=== PATIENT | male | born 1955 | race Caucasian/White ===

== ENCOUNTER 2019-01-06 17:51 | Inpatient (IN) | payer OTHER ==
[~2019-01-06] VITALS: Ht 165.1 cm; Wt 46.3 kg
[2019-01-06] MEDS ORDERED: SOD CHLORIDE 0.9% 550 ML IV ONE (18:30)
[2019-01-06] MEDS ORDERED: CEFTRIAXONE 1 GM/50 ML (PMX) 50 ML IVPB ONE (20:00)
--- NOTE | 2019-01-06 20:38 | ERD ---
ER Documentation Chief Complaint Chief Complaint suicidal ideation s/p not being seen @ wound clinic and "in pain" HPI This is a 63-year-old male who presents for evaluation of general malaise, and left foot pain, stating he has a concern of left foot is infected. He also endorses flank pain, on the left side, he denies nausea vomiting, no fever. Of note, patient endorsed suicidal ideations in triage and to her our nurse. I ad dressed this with him, and the patient stated that he is in fact not suicidal, and has no plan to harm himself, he has no psychiatric history, and he does not wish to speak to a psychiatrist. He states that he said this, in order to be evaluated, for his pain, and he wanted to be seen faster. ROS All systems reviewed and are negative except as per history of present illness. Allergies Allergies: Coded Allergies: No Known Allergies (Verified Allergy, Unknown, 01/06/19) PMhx/Soc History of Surgery: Yes (Rt above knee amputation) Anesthesia Reaction: No Hx Neurological Disorder: Yes (neuropathy) Hx Cardiac Disorders: Yes (DM) Hx Psychiatric Problems: No Hx Miscellaneous Medical Probl: Yes (vision changes r/t neuropathy) Hx Alcohol Use: Yes (few beers/day) Hx Substance Use: No Hx Tobacco Use: No Smoking Status: Never smoker Physical Exam Vitals Vital Signs Date Temp Pulse Resp B/P (MAP) Pulse Ox O2 O2 Flow FiO2 Time Delivery Rate 01/06/19 98.1 68 16 100/76 100 18:04 (84) Physical Exam Const: No acute distress Head: Atraumatic Eyes: Normal Conjunctiva ENT: Normal External Ears, Nose and Mouth. Neck: Full range of motion. No meningismus. Resp: Clear to auscultation bilaterally Cardio: Regular rate and rhythm, no murmurs Abd: Soft, non tender, non distended. Normal bowel sounds Skin: No petechiae or rashes Back: No midline or flank tenderness Ext: No cyanosis, or edema. He has a right lower extremity BKA, there is a stage I foot ulcer on the medial foot Neur: Awake and alert Psych: Normal Mood and Affect Result Diagram: 01/06/19 1836 01/06/19 1836 Results 24 hrs Laboratory Tests Test 01/06/19 18:12 2/22/19 18:36 Blood Gas Specimen Source Blood venous Arterial Blood Date Drawn 01/06/2019 7:12:51 PM Arterial Blood Gas Puncture Site VENOUS LINE Hank Test N/A Venous Blood pH 7.464 Venous Blood pCO2 (Temp Corrected) 38.0 mmHG Venous Blood pO2 (Temp Corrected) 68.4 mmHG Venous Blood HCO3 26.7 mmol/L Venous Blood Oxygen Saturation 93.5 mmHG Venous Blood Base Excess 2.9 mmol/L Venous Blood Total Hemoglobin 11.4 g/dl Venous Blood Oxyhemoglobin 93.2 % Venous Blood Methemoglobin 0.2 % Carboxyhemoglobin 0.1 % Blood Gas Temperature 37.0 C Blood Gas Modality ROOM AIR FiO2 21.0 % Blood Gas Notified Whom MG Blood Gas Notified Time 01/06/2019 7:17:20 PM White Blood Count 5.4 10^3/ul Red Blood Count 3.80 10^6/ul Hemoglobin 11.5 g/dl Hematocrit 32.9 % Mean Corpuscular Volume 86.6 fl Mean Corpuscular Hemoglobin 30.3 pg Mean Corpuscular Hemoglobin Concent 35.0 g/dl Red Cell Distribution Width 12.7 % Platelet Count 205 10^3/UL Mean Platelet Volume 9.8 fl Immature Granulocytes % 0.400 % Neutrophils % 62.9 % Lymphocytes % 26.4 % Monocytes % 8.5 % Eosinophils % 0.9 % Basophils % 0.9 % Nucleated Red Blood Cells % 0.0 /100WBC Immature Granulocytes # 0.020 10^3/ul Neutrophils # 3.4 10^3/ul Lymphocytes # 1.4 10^3/ul Monocytes # 0.5 10^3/ul Eosinophils # 0.1 10^3/ul Basophils # 0.1 10^3/ul Nucleated Red Blood Cells # 0.0 10^3/ul Urine Color YELLOW Urine Clarity SLIGHTLY CLOUDY Urine pH 6.0 Urine Specific [place] 1.026 Urine Ketones NEGATIVE mg/dL Urine Nitrite NEGATIVE mg/dL Urine Bilirubin NEGATIVE mg/dL Urine Urobilinogen NEGATIVE mg/dL Urine Leukocyte Esterase 1+ Bhumika/ul Urine Microscopic RBC 9 /HPF Urine Microscopic WBC 73 /HPF Urine Hemoglobin 1+ mg/dL Urine Glucose 3+ mg/dL Urine Total Protein NEGATIVE mg/dl Sodium Level 135 mmol/L Potassium Level 4.0 mmol/L Chloride Level 98 mmol/L Carbon Dioxide Level 29 mmol/L Anion Gap 8 Blood Urea Nitrogen 9 mg/dl Creatinine 0.71 mg/dl Est Glomerular Filtrat Rate mL/min > 60 mL/min Glucose Level 232 mg/dl Calcium Level 9.6 mg/dl Phosphorus Level 2.8 mg/dl Magnesium Level 1.9 mg/dl Total Bilirubin 0.0 mg/dl Direct Bilirubin 0.00 mg/dl Indirect Bilirubin 0.0 mg/dl Aspartate Amino Transf (AST/SGOT) 96 IU/L Alanine Aminotransferase (ALT/SGPT) 62 IU/L Alkaline Phosphatase 222 IU/L Troponin I < 0.012 ng/ml Total Protein 6.9 g/dl Albumin 3.8 g/dl Globulin 3.10 g/dl Albumin/Globulin Ratio 1.22 Current Medications Medications Dose Sig/[place] Start Time Status Last (Trade) Ordered Route PRN Stop Time Admin Dose Reason Admin Sodium 550 ml @ ONCE ONCE 01/06/19 DC 01/06/19 Chloride 1,000 mls/hr IV 18:30 18:51 01/06/19 19:02 Ceftriaxone 50 ml @ ONCE ONCE 01/06/19 DC 01/06/19 Sodium 100 mls/hr IVPB 20:00 20:23 01/06/19 20:29 Procedures/MDM 63-year-old male presents for evaluation of foot pain, generalized malaise and flank pain. On exam patient is nontoxic-appearing, his labs returned unremarkable for pyuria, and given male sex, as well as some noted general malaise, I am concerned about pyelonephritis, in addition he is an uncontrolled diabetic, will plan for admission and will give a dose of ceftriaxone. Regarding the patient stated SI, as noted above, I discussed this in significant detail with the patient, and he clearly stated his reasons for having stated that he had SI, he is very emphatic that he has no suicidal ideations, and has no intention of harming himself, thus I do not feel that he requires psychiatric hold. Patient will be admitted to [facility], he is hemodynamically stable, and is stable for transfer. He has not notable stage I left foot ulcer, with no evidence of infection, I have a low suspicion for osteomyelitis. X-ray Foot 3V Interpreted by me: Bones: No fracture Joints: No dislocation Foreign body: None Departure Diagnosis: Primary Impression: Pyelonephritis Additional Impression: Foot pain Laterality: left Qualified Codes: M79.672 - Pain in left foot Condition: Stable DIAZ,DENNIS MD Jan 06, 2019 20:38
[2019-01-06] MEDS ORDERED: GABA-528 PO (20:40)
[2019-01-06] MEDS ORDERED: LANT3I SC (20:40)
[2019-01-06] MEDS ORDERED: NOVO3I SC (20:40)
[2019-01-06] MEDS ORDERED: CEPH-443 PO (20:52)
[2019-01-07] MEDS ORDERED: KETOROLAC 15 MG INJ IV STA (02:44)
[2019-01-07] MEDS ORDERED: INSULIN LISPRO 100 UNIT/ML VIAL SC ONE (15:30)
[2019-01-07] MEDS ORDERED: SOD CHLORIDE 0.9% 1,000 ML IV ONE (15:30)
[2019-01-07] MEDS ORDERED: ACETAMINOPHEN 325 MG TAB ONE (16:20)
[2019-01-07] MEDS ORDERED: DEXTROSE 50% 50 ML SYRINGE IV PRN ×2 (16:30)
[2019-01-07] MEDS ORDERED: GLUCAGON 1 MG INJ IM PRN (16:30)
[2019-01-07] MEDS ORDERED: GLUCOSE GEL 15 GRAM TUBE PO PRN ×2 (16:30)
[2019-01-07] MEDS ORDERED: GLUCOSE GEL 15 GRAM TUBE BUCCAL PRN (16:30)
[2019-01-07] MEDS ORDERED: morphine 2 MG INJ IV STA (16:38)
[2019-01-07] MEDS ORDERED: NACL 0.9% 3 ML SYG IV SCH (17:00)
--- NOTE | 2019-01-07 17:13 | HP ---
Date/Time of Note Date/Time of Note DATE: 01/07/19 TIME: 16:59 Assessment/Plan VTE Prophylaxis Pharmacological prophylaxis: heparin Assessment/Plan Hospital Course 63 yo male with h/o DMII and PAD s/p R BKA who presents with severe pain in L ankle L ankle pain: - Probably charcot joint but concern for infection/abscess given swelling and tenderness there - MRI to evaluate - Duplex US as well - Further management pending MRI - Hold off on antibiotics for now DMII with hyperglycemia: - patient off of insulin as outpatinet 2/2 homelessness - titrate basal/bolus insulin - continue metformin PAD: - Aspirin and statin Diabetic neuropathy Discharge: patient in homeless, has a SW who is assisting his case Result Diagram: 01/07/19 1358 01/07/19 1358 Results 24hrs Laboratory Tests Test 01/06/19 18:12 01/06/19 18:36 01/07/19 13:58 01/07/19 15:41 Blood Gas Blood venous Specimen Source Arterial Blood 01/06/2019 7:12: Date Drawn 51 PM Arterial Blood VENOUS LINE Gas Puncture Site Hank Test N/A Venous Blood pH 7.464 H Venous Blood 38.0 pCO2 (Temp Corrected) Venous Blood pO2 68.4 H (Temp Corrected) Venous Blood 26.7 HCO3 Venous Blood 93.5 H Oxygen Saturation Venous Blood 2.9 Base Excess Venous Blood 11.4 Total Hemoglobin Venous Blood 93.2 Oxyhemoglobin Venous Blood 0.2 Methemoglobin Carboxyhemoglobi 0.1 n Blood Gas 37.0 Temperature Blood Gas ROOM AIR Modality FiO2 21.0 Blood Gas MG Notified Whom Blood Gas 01/06/2019 7:17: Notified Time 20 PM White Blood 5.4 3.2 #L Count Red Blood Count 3.80 L 3.77 L Hemoglobin 11.5 L 11.4 L Hematocrit 32.9 L 34.0 L Mean Corpuscular 86.6 90.2 Volume Mean Corpuscular 30.3 30.2 Hemoglobin Mean Corpuscular 35.0 33.5 Hemoglobin Angie nt Red Cell 12.7 12.7 Distribution Width Platelet Count 205 184 Mean Platelet 9.8 9.9 Volume Immature 0.400 0.300 Granulocytes % Neutrophils % 62.9 65.7 Lymphocytes % 26.4 23.0 Monocytes % 8.5 7.9 Eosinophils % 0.9 2.2 Basophils % 0.9 0.9 Nucleated Red 0.0 0.0 Blood Cells % Immature 0.020 0.010 Granulocytes # Neutrophils # 3.4 2.1 Lymphocytes # 1.4 0.7 L Monocytes # 0.5 0.3 Eosinophils # 0.1 0.1 Basophils # 0.1 0.0 Nucleated Red 0.0 0.0 Blood Cells # Urine Color YELLOW Urine Clarity SLIGHTLY CLOUDY A Urine pH 6.0 Urine Specific 1.026 [place] Urine Ketones NEGATIVE Urine Nitrite NEGATIVE Urine Bilirubin NEGATIVE Urine NEGATIVE Urobilinogen Urine Leukocyte 1+ H Esterase Urine 9 H Microscopic RBC Urine 73 H Microscopic WBC Urine Hemoglobin 1+ H Urine Glucose 3+ H Urine Total NEGATIVE Protein Sodium Level 135 134 L Potassium Level 4.0 5.1 Chloride Level 98 100 Carbon Dioxide 29 28 Level Anion Gap 8 6 Blood Urea 9 14 Nitrogen Creatinine 0.71 0.56 L Est Glomerular > 60 > 60 Filtrat Rate mL/min Glucose Level 232 H 651 #*H Calcium Level 9.6 9.1 Phosphorus Level 2.8 Magnesium Level 1.9 Total Bilirubin 0.0 L 0.0 L Direct Bilirubin 0.00 0.00 Indirect 0.0 0.0 Bilirubin Aspartate Amino 96 H 129 H Transf (AST/SGOT ) Alanine 62 64 Aminotransferase (ALT/SGPT) Alkaline 222 H 218 H Phosphatase Troponin I < 0.012 Total Protein 6.9 6.1 Albumin 3.8 3.2 L Globulin 3.10 2.90 Albumin/Globulin 1.22 1.10 Ratio Erythrocyte 8 Sedimentation Rate C-Reactive < 0.5 Protein Bedside Glucose 580 *H Test 01/07/19 16:06 POC Venous 1.0 Lactate HPI/ROS Admit Date/Time Admit Date/Time Hx of Present Illness 63 yo male with h/o DMII, PAD s/p BKA who presents with severe pain in ankle Patient is s/p R BKA but still ambulates on L leg. Over past three days L ankle has become incredibly painful. He denies fever/chills but says he feels generally malaise and unwell. No localizing symptoms other than L ankle. Denies any clear trauma it seems. He is begging for morphine given the pain. PMH/Family/Social Past Medical History Medical History: diabetes Medications Current Medications Insulin Glargine (Lantus) 16 units DAILY@2000 SC ; Start 01/07/19 at 20:00 Insulin Aspart (Novolog Insulin Pen) 5 unit WITH MEALS SC ; Start 01/07/19 at 18:00 Insulin Aspart (Novolog Insulin Pen) NOVOLOG *MODERATE* ALGORITHM WITH MEALS BEDTIME SC ; Start 01/07/19 at 18:00 Miscellaneous Information 1 ea NOTE XX ; Start 01/07/19 at 16:30 Glucose (Glutose) 15 gm Q15M PRN PO DECREASED GLUCOSE; Start 01/07/19 at 16:30 Glucose (Glutose) 22.5 gm Q15M PRN PO DECREASED GLUCOSE; Start 01/07/19 at 16:30 Dextrose (D50w Syringe) 25 ml Q15M PRN IV DECREASED GLUCOSE; Start 01/07/19 at 16:30 Dextrose (D50w Syringe) 50 ml Q15M PRN IV DECREASED GLUCOSE; Start 01/07/19 at 16:30 Glucagon (Glucagen) 1 mg Q15M PRN IM DECREASED GLUCOSE; Start 01/07/19 at 16:30 Glucose (Glutose) 15 gm Q15M PRN BUCCAL DECREASED GLUCOSE; Start 01/07/19 at 16:30 Coded Allergies: No Known Allergies (Verified Allergy, Unknown, 01/06/19) Past Surgical History BKA Family History Significant Family History: no pertinent family hx Social History Alcohol Use: none Smoking Status: Never smoker Drug Use: none Exam/Review of Systems Vital Signs Vitals Vital Signs Date Temp Pulse Resp B/P (MAP) Pulse Ox O2 O2 Flow FiO2 Time Delivery Rate 01/07/19 97.6 74 14 126/88 99 Room Air 15:52 (101) Exam Exam Alert oriented AOx3 Clearly in pain RRR Breathing comfortably s/p R BKA L ankle diffusely swollen and erythematous. Tracks up to calf. NEO LOPEZ MD Jan 07, 2019 17:10
[2019-01-07 17:32] VITALS: BP 147/104; PULSE 81; RESP 18
[2019-01-07 17:40] VITALS: Ht 165.1 cm; Wt 46.3 kg
[2019-01-07] MEDS: INSULIN ASPART [NOVOLOG] 3 ML PEN SC SCH ×3 (18:00→21:00)
[2019-01-07] MEDS: HYDROmorphONE 0.5 MG/0.5 ML SYG IV PRN (19:15)
[2019-01-07] MEDS ORDERED: INSULIN GLARGINE [LANTus] (100 UNITS/ML) SYG SC SCH (20:00)
[2019-01-07 20:42] VITALS: BP 153/94; PULSE 69; RESP 20
[2019-01-07 20:43] VITALS: BP 153/94; PULSE 69; RESP 20
[2019-01-07] MEDS: HEPARIN 5,000 UNIT/1 ML VIAL SC SCH (21:19)
[2019-01-07] MEDS: HYDROCODONE/APAP (5/325) TAB PO PRN (23:37)
[2019-01-08 01:46] VITALS: BP 129/85; PULSE 74; RESP 20
[2019-01-08 07:30] VITALS: BP 140/88; PULSE 80; RESP 18
[2019-01-08] MEDS: ASPIRIN 81 MG TAB PO SCH (08:12)
[2019-01-08] MEDS: INSULIN ASPART [NOVOLOG] 3 ML PEN SC SCH ×7 (08:16→21:00)
[2019-01-08] MEDS: HEPARIN 5,000 UNIT/1 ML VIAL SC SCH ×2 (08:16→20:08)
[2019-01-08] MEDS: HYDROCODONE/APAP (5/325) TAB PO PRN ×3 (08:19→22:51)
[2019-01-08] MEDS ORDERED: INFLUENZA VIRUS VACCINE 0.5 ML (DISPENSING) IM* ONE (09:00)
[2019-01-08] MEDS: HYDROmorphONE 0.5 MG/0.5 ML SYG IV PRN ×2 (11:52→20:06)
[2019-01-08 14:00] VITALS: BP 122/81; PULSE 81; RESP 20
--- NOTE | 2019-01-08 14:34 | PN ---
Date/Time of Note Date/Time of Note DATE: 01/08/19 TIME: 14:24 Assessment/Plan VTE Prophylaxis Risk score (from Nsg)>0 risk: 4 SCD applied (from Nsg): Yes Pharmacological prophylaxis: heparin Lines/Catheters IV Catheter Type (from Nrsg): Saline Lock Urinary Cath still in place: No Assessment/Plan Hospital Course 63 yo male with h/o DMII and PAD s/p R BKA who presents with severe pain in L ankle L ankle pain: - MRI shows neuropathic changes of ankle. Dr Trinidad from podiatry has been consulted DMII with hyperglycemia: - patient off of insulin as outpatinet 12/17 homelessness - titrate basal/bolus insulin PAD: - Aspirin and statin Diabetic neuropathy Discharge: patient in homeless, has a SW who is assisting his case. CM to assist Result Diagram: 01/08/19 0546 01/08/19 0546 Results 24hrs Laboratory Tests Test 01/07/19 15:41 01/07/19 16:06 01/07/19 18:43 01/07/19 21:11 Bedside Glucose 580 *H 160 75 POC Venous Lactate 1.0 Test 01/07/19 21:52 01/08/19 05:46 01/08/19 07:00 01/08/19 07:14 Bedside Glucose 113 42 *L 181 White Blood Count 4.0 #L Red Blood Count 3.62 L Hemoglobin 11.2 L Hematocrit 32.9 L Mean Corpuscular 90.9 Volume Mean Corpuscular 30.9 Hemoglobin Mean Corpuscular 34.0 Hemoglobin Concent Red Cell 12.5 Distribution Width Platelet Count 214 Mean Platelet Volume 10.0 Immature 0.200 Granulocytes % Neutrophils % 53.9 Lymphocytes % 36.2 Monocytes % 6.7 Eosinophils % 2.0 Basophils % 1.0 Nucleated Red Blood 0.0 Cells % Immature 0.010 Granulocytes # Neutrophils # 2.2 Lymphocytes # 1.5 Monocytes # 0.3 Eosinophils # 0.1 Basophils # 0.0 Nucleated Red Blood 0.0 Cells # Sodium Level 141 Potassium Level 3.6 Chloride Level 106 Carbon Dioxide Level 29 Anion Gap 6 Blood Urea Nitrogen 17 Creatinine 0.53 L Est Glomerular > 60 Filtrat Rate mL/min Glucose Level 38 #*L Hemoglobin A1c Calcium Level 9.2 Total Bilirubin 0.0 L Direct Bilirubin 0.00 Indirect Bilirubin 0.0 Aspartate Amino 47 #H Transf (AST/SGOT) Alanine 57 Aminotransferase (AL T/SGPT) Alkaline Phosphatase 168 H Total Protein 6.2 Albumin 3.1 L Globulin 3.10 Albumin/Globulin 1.00 Ratio Test 01/08/19 08:14 01/08/19 11:50 Bedside Glucose 232 H 104 Subjective 24 Hr Interval Summary Free Text/Dictation MRI shows ankle inflammation, no abscess or infection Pain improved Hypoglycemia, insulin dose decreased Exam/Review of Systems Exam Vitals Vital Signs Date Temp Pulse Resp B/P (MAP) Pulse Ox O2 O2 Flow FiO2 Time Delivery Rate 01/08/19 97.8 80 18 140/88 99 Room Air 07:30 (105) Intake and Output 01/07/19 01/07/19 01/08/19 1414:59 22:59 06:59 IntakeIntake Total 500 ml OutputOutput Total 1000 ml 700 ml BalanceBalance -1000 ml -700 ml 500 ml Exam Appears comfortable RRR CTAB Soft nt nd s/p R BKA L ankle still a bit swollen, less than previously Results Results 24hrs Laboratory Tests Test 01/07/19 15:41 01/07/19 16:06 01/07/19 18:43 01/07/19 21:11 Bedside Glucose 580 *H 160 75 POC Venous Lactate 1.0 Test 01/07/19 21:52 01/08/19 05:46 01/08/19 07:00 01/08/19 07:14 Bedside Glucose 113 42 *L 181 White Blood Count 4.0 #L Red Blood Count 3.62 L Hemoglobin 11.2 L Hematocrit 32.9 L Mean Corpuscular 90.9 Volume Mean Corpuscular 30.9 Hemoglobin Mean Corpuscular 34.0 Hemoglobin Concent Red Cell 12.5 Distribution Width Platelet Count 214 Mean Platelet Volume 10.0 Immature 0.200 Granulocytes % Neutrophils % 53.9 Lymphocytes % 36.2 Monocytes % 6.7 Eosinophils % 2.0 Basophils % 1.0 Nucleated Red Blood 0.0 Cells % Immature 0.010 Granulocytes # Neutrophils # 2.2 Lymphocytes # 1.5 Monocytes # 0.3 Eosinophils # 0.1 Basophils # 0.0 Nucleated Red Blood 0.0 Cells # Sodium Level 141 Potassium Level 3.6 Chloride Level 106 Carbon Dioxide Level 29 Anion Gap 6 Blood Urea Nitrogen 17 Creatinine 0.53 L Est Glomerular > 60 Filtrat Rate mL/min Glucose Level 38 #*L Hemoglobin A1c Calcium Level 9.2 Total Bilirubin 0.0 L Direct Bilirubin 0.00 Indirect Bilirubin 0.0 Aspartate Amino 47 #H Transf (AST/SGOT) Alanine 57 Aminotransferase (AL T/SGPT) Alkaline Phosphatase 168 H Total Protein 6.2 Albumin 3.1 L Globulin 3.10 Albumin/Globulin 1.00 Ratio Test 01/08/19 08:14 01/08/19 11:50 Bedside Glucose 232 H 104 Medications Medication Current Medications Insulin Aspart (Novolog Insulin Pen) 5 unit WITH MEALS SC Last administered on 01/08/19 11:57; Admin Dose 5 UNIT; Start 01/07/19 at 18:00 Insulin Aspart (Novolog Insulin Pen) NOVOLOG *MODERATE* ALGORITHM WITH MEALS BEDTIME SC Last administered on 01/08/19 08:16; Admin Dose 6 UNIT; Start 01/07/19 at 18:00 Miscellaneous Information 1 ea NOTE XX ; Start 01/07/19 at 16:30 Glucose (Glutose) 15 gm Q15M PRN PO DECREASED GLUCOSE; Start 01/07/19 at 16:30 Glucose (Glutose) 22.5 gm Q15M PRN PO DECREASED GLUCOSE; Start 01/07/19 at 16:30 Dextrose (D50w Syringe) 25 ml Q15M PRN IV DECREASED GLUCOSE; Start 01/07/19 at 16:30 Dextrose (D50w Syringe) 50 ml Q15M PRN IV DECREASED GLUCOSE Last administered on 01/08/19at 07:05; Admin Dose 50 ML; Start 01/07/19 at 16:30 Glucagon (Glucagen) 1 mg Q15M PRN IM DECREASED GLUCOSE; Start 01/07/19 at 16:30 Glucose (Glutose) 15 gm Q15M PRN BUCCAL DECREASED GLUCOSE; Start 01/07/19 at 16:30 IV Flush (NS 3 ml) 3 ml PER PROTOCOL IV ; Start 01/07/19 at 17:00 Acetaminophen/ Hydrocodone Bitart ([place] (5/325)) 2 tab Q6H PRN PO .SEVERE PAIN 7-10 Last administered on 01/08/19at 08:19; Admin Dose 2 TAB; Start 01/07/19 at 17:00 Hydromorphone HCl (Dilaudid) 0.5 mg Q4H PRN IV .SEVERE PAIN 7-10 Last administered on 01/08/19at 11:52; Admin Dose 0.5 MG; Start 01/07/19 at 17:00 Heparin Sodium (Porcine) (Heparin (5000 Units/1ml)) 5,000 unit Q12 SC Last administered on 01/08/19at 08:16; Admin Dose 5,000 UNIT; Start 01/07/19 at 21:00 Aspirin (Aspirin) 81 mg DAILY PO Last administered on 01/08/19at 08:12; Admin Dose 81 MG; Start 01/08/19 at 09:00 Insulin Glargine (Lantus) 5 units DAILY@2000 SC ; Start 01/08/19 at 20:00 NEO LOPEZ MD Jan 08, 2019 14:34
[2019-01-08 20:00] VITALS: BP 110/70; PULSE 78; RESP 19
[2019-01-08] MEDS ORDERED: INSULIN GLARGINE [LANTus] (100 UNITS/ML) SYG SC SCH (20:00)
--- NOTE | 2019-01-08 20:46 | CONS ---
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 Purulence and biofilm was removed. Less than 20cm2 of area was debrided. Wound cultures were obtained. Recommend daily dakins irrigation with betadine 4x4 gauze and kerlix wrap. Recommend offload heels with pillows. Non-invasive arterial studies ordered. Reviewed X-rays and MRI which showed predominantly diffuse edema and degenerative changes. It's possible that there is early stage of acute charcot neuroarthropathy and recommend non weight bearing to the left lower extremity. Nursing recommendations for daily dressings changes. Recommend vascular evaluation, there is significant calcified vessels and pain could possibly be related to ischemic causes. Consultation Date/Type/Reason Admit Date/Time Date/Time of Note DATE: 01/08/19 TIME: 20:46 Hx of Present Illness 63 yo male with h/o DMII, PAD s/p AKA who presents with severe pain in ankle Patient is s/p R AKA but still ambulates on L leg. Over past three days L ankle has become incredibly painful. He denies fever/chills but says he feels generally malaise and unwell. No localizing symptoms other than L ankle. Denies any clear trauma it seems. He is begging for morphine given the pain. ROS Negative except HPI Past Medical History Medical History: diabetes Home Meds Active Scripts Cephalexin* (Keflex*) 500 Mg Capsule, 500 MG PO QID for 7 Days, CAP Prov:DENNIS DIAZ MD 01/06/19 Reported Medications Gabapentin* (Gabapentin*) 800 Mg Tablet, 800 MG PO TID, #90 TAB 01/06/19 Insulin Glargine* (Lantus*) 100 Unit/Ml Soln, 5 UNIT SC QHS, #1 VIAL 01/06/19 Insulin Aspart* (Novolog Insulin Pen*) 100 Unit/Ml Soln, 5 UNIT SC WITH MEALS, EA 01/06/19 Medications Current Medications Insulin Aspart (Novolog Insulin Pen) 5 unit WITH MEALS SC Last administered on 01/08/19at 17:08; Admin Dose 5 UNIT; Start 01/07/19 at 18:00 Insulin Aspart (Novolog Insulin Pen) NOVOLOG *MODERATE* ALGORITHM WITH MEALS BEDTIME SC Last administered on 01/08/19at 08:16; Admin Dose 6 UNIT; Start 01/07/19 at 18:00 Miscellaneous Information 1 ea NOTE XX ; Start 01/07/19 at 16:30 Glucose (Glutose) 15 gm Q15M PRN PO DECREASED GLUCOSE; Start 01/07/19 at 16:30 Glucose (Glutose) 22.5 gm Q15M PRN PO DECREASED GLUCOSE; Start 01/07/19 at 16:30 Dextrose (D50w Syringe) 25 ml Q15M PRN IV DECREASED GLUCOSE; Start 01/07/19 at 16:30 Dextrose (D50w Syringe) 50 ml Q15M PRN IV DECREASED GLUCOSE Last administered on 01/08/19at 07:05; Admin Dose 50 ML; Start 01/07/19 at 16:30 Glucagon (Glucagen) 1 mg Q15M PRN IM DECREASED GLUCOSE; Start 01/07/19 at 16:30 Glucose (Glutose) 15 gm Q15M PRN BUCCAL DECREASED GLUCOSE; Start 01/07/19 at 16:30 IV Flush (NS 3 ml) 3 ml PER PROTOCOL IV ; Start 01/07/19 at 17:00 Acetaminophen/ Hydrocodone Bitart (Angela (5/325)) 2 tab Q6H PRN PO .SEVERE PAIN 7-10 Last administered on 01/08/19at 16:17; Admin Dose 2 TAB; Start 01/07/19 at 17:00 Hydromorphone HCl (Dilaudid) 0.5 mg Q4H PRN IV .SEVERE PAIN 7-10 Last administered on 01/08/19at 20:06; Admin Dose 0.5 MG; Start 01/07/19 at 17:00 Heparin Sodium (Porcine) (Heparin (5000 Units/1ml)) 5,000 unit Q12 SC Last administered on 01/08/19at 20:08; Admin Dose 5,000 UNIT; Start 01/07/19 at 21:00 Aspirin (Aspirin) 81 mg DAILY PO Last administered on 01/08/19at 08:12; Admin Dose 81 MG; Start 01/08/19 at 09:00 Insulin Glargine (Lantus) 5 units DAILY@2000 SC Last administered on 01/08/19at 20:08; Admin Dose 5 UNITS; Start 01/08/19 at 20:00 Allergies: Coded Allergies: No Known Allergies (Verified Allergy, Unknown, 01/06/19) Past Surgical History Right AKA Social History Alcohol Use: none Smoking Status: Never smoker Drug Use: none Exam/Review of Systems Exam Vitals Vital Signs Date Temp Pulse Resp B/P (MAP) Pulse Ox O2 O2 Flow FiO2 Time Delivery Rate 01/08/19 98.2 78 19 110/70 93 Room Air 20:00 (83) Intake and Output 01/07/19 01/07/19 01/08/19 1414:59 22:59 06:59 IntakeIntake Total 500 ml OutputOutput Total 1000 ml 700 ml BalanceBalance -1000 ml -700 ml 500 ml Exam Weakly palpable DP/PT pulses Weakly palpable popliteal pulse Left medial foot ulceration site with scant purulence appreciated measuring 0.5 x 0.5 x 0.3cm. No tunneling or undermining appreciated. Unable to probe to bone. No proximal streaking Absent protective sensations R above knee amputation site appreciated. Diffuse pain noted to the left foot and ankle region. Left foot X-ray IMPRESSION: No fracture or acute osseous abnormality demonstrated. Left ankle MRI IMPRESSION: 1. Diffuse subcutaneous edema most prominent in the dorsum of the hind foot and midfoot. 2. Diffuse edema of the visualized musculature of the foot may be neuropathic. 3. No acute fracture. Hypertrophic change in the medial malleolus with focal edema likely reactive. 4. Prominent Stieda process/os trigonum with edema / cystic change and degenerative change in the posterior tibiotalar joint may be related to posterior impingement. 5. Small to moderate tibiotalar and subtalar joint effusion. 6. Tenosynovitis of the peroneal and posterior flexor tendons as above. 7. Additional degenerative changes as above. Results Result Diagram: 01/08/19 0546 01/[birth year]/1946 Results 24hrs Laboratory Tests Test 01/07/19 21:11 01/07/19 21:52 01/08/19 05:46 01/08/19 07:00 Bedside Glucose 75 113 42 *L White Blood Count 4.0 #L Red Blood Count 3.62 L Hemoglobin 11.2 L Hematocrit 32.9 L Mean Corpuscular 90.9 Volume Mean Corpuscular 30.9 Hemoglobin Mean Corpuscular 34.0 Hemoglobin Concent Red Cell 12.5 Distribution Width Platelet Count 214 Mean Platelet Volume 10.0 Immature 0.200 Granulocytes % Neutrophils % 53.9 Lymphocytes % 36.2 Monocytes % 6.7 Eosinophils % 2.0 Basophils % 1.0 Nucleated Red Blood 0.0 Cells % Immature 0.010 Granulocytes # Neutrophils # 2.2 Lymphocytes # 1.5 Monocytes # 0.3 Eosinophils # 0.1 Basophils # 0.0 Nucleated Red Blood 0.0 Cells # Sodium Level 141 Potassium Level 3.6 Chloride Level 106 Carbon Dioxide Level 29 Anion Gap 6 Blood Urea Nitrogen 17 Creatinine 0.53 L Est Glomerular > 60 Filtrat Rate mL/min Glucose Level 38 #*L Hemoglobin A1c Calcium Level 9.2 Total Bilirubin 0.0 L Direct Bilirubin 0.00 Indirect Bilirubin 0.0 Aspartate Amino 47 #H Transf (AST/SGOT) Alanine 57 Aminotransferase (AL T/SGPT) Alkaline Phosphatase 168 H Total Protein 6.2 Albumin 3.1 L Globulin 3.10 Albumin/Globulin 1.00 Ratio Test 01/08/19 07:14 01/08/19 08:14 01/08/19 11:50 01/08/19 17:07 Bedside Glucose 181 232 H 104 91 Test 01/08/19 20:01 Bedside Glucose 92 Medications Medication Current Medications Insulin Aspart (Novolog Insulin Pen) 5 unit WITH MEALS SC Last administered on 01/08/19at 17:08; Admin Dose 5 UNIT; Start 01/07/19 at 18:00 Insulin Aspart (Novolog Insulin Pen) NOVOLOG *MODERATE* ALGORITHM WITH MEALS BEDTIME SC Last administered on 01/08/19at 08:16; Admin Dose 6 UNIT; Start 01/07/19 at 18:00 Miscellaneous Information 1 ea NOTE XX ; Start 01/07/19 at 16:30 Glucose (Glutose) 15 gm Q15M PRN PO DECREASED GLUCOSE; Start 01/07/19 at 16:30 Glucose (Glutose) 22.5 gm Q15M PRN PO DECREASED GLUCOSE; Start 01/07/19 at 16:30 Dextrose (D50w Syringe) 25 ml Q15M PRN IV DECREASED GLUCOSE; Start 01/07/19 at 16:30 Dextrose (D50w Syringe) 50 ml Q15M PRN IV DECREASED GLUCOSE Last administered on 01/08/19at 07:05; Admin Dose 50 ML; Start 01/07/19 at 16:30 Glucagon (Glucagen) 1 mg Q15M PRN IM DECREASED GLUCOSE; Start 01/07/19 at 16:30 Glucose (Glutose) 15 gm Q15M PRN BUCCAL DECREASED GLUCOSE; Start 01/07/19 at 16 :30 IV Flush (NS 3 ml) 3 ml PER PROTOCOL IV ; Start 01/07/19 at 17:00 Acetaminophen/ Hydrocodone Bitart (Angela (5/325)) 2 tab Q6H PRN PO .SEVERE PAIN 7-10 Last administered on 01/08/19 16:17; Admin Dose 2 TAB; Start 01/07/19 at 17:00 Hydromorphone HCl (Dilaudid) 0.5 mg Q4H PRN IV .SEVERE PAIN 7-10 Last administered on 01/08/19 20:06; Admin Dose 0.5 MG; Start 01/07/19 at 17:00 Heparin Sodium (Porcine) (Heparin (5000 Units/1ml)) 5,000 unit Q12 SC Last administered on 01/08/19 20:08; Admin Dose 5,000 UNIT; Start 01/07/19 at 21:00 Aspirin (Aspirin) 81 mg DAILY PO Last administered on 01/08/19 08:12; Admin Dose 81 MG; Start 01/08/19 at 09:00 Insulin Glargine (Lantus) 5 units DAILY@2000 SC Last administered on 01/08/19 20:08; Admin Dose 5 UNITS; Start 01/08/19 at 20:00 MANISHA STOCKTON DPM Jan 08, 2019 20:46
[2019-01-08 22:40] VITALS: BP 128/90; PULSE 90
[2019-01-08] MEDS ORDERED: morphine 2 MG INJ IV STA (23:05)
[2019-01-09 02:00] VITALS: BP 116/78; PULSE 89; RESP 19
[2019-01-09 07:19] VITALS: BP 121/79; PULSE 86; RESP 18
[2019-01-09] MEDS: INSULIN ASPART [NOVOLOG] 3 ML PEN SC SCH ×7 (08:00→20:51)
[2019-01-09] MEDS: ASPIRIN 81 MG TAB PO SCH (08:24)
[2019-01-09] MEDS: SODIUM HYPOCHLORITE (1/40) 1 APPLIC BTL IRR SCH (08:26)
[2019-01-09] MEDS: HEPARIN 5,000 UNIT/1 ML VIAL SC SCH ×2 (08:26→20:57)
[2019-01-09] MEDS: HYDROCODONE/APAP (5/325) TAB PO PRN ×2 (13:59→18:44)
[2019-01-09 14:07] VITALS: BP 113/87; PULSE 89; RESP 16
--- NOTE | 2019-01-09 16:35 | PN ---
Date/Time of Note Date/Time of Note DATE: 01/09/19 TIME: 16:33 Assessment/Plan VTE Prophylaxis Risk score (from Nsg)>0 risk: 4 Pharmacological prophylaxis: other Lines/Catheters IV Catheter Type (from Nrsg): Saline Lock Urinary Cath still in place: No Assessment/Plan Hospital Course 63 yo male with h/o DMII and PAD s/p R BKA who presents with severe pain in L ankle L ankle pain: - MRI shows neuropathic changes of ankle. Dr Trinidad from podiatry consultation appreciated, patient is status post debridement DMII with hyperglycemia: - patient off of insulin as outpatient 12/17 homelessness - titrate basal/bolus insulin PAD: - Aspirin and statin Diabetic neuropathy Discharge: patient in homeless, has a SW who is assisting his case. CM to assist Result Diagram: 01/08/1946 01/08/19 0546 Results 24hrs Laboratory Tests Test 01/08/19 17:07 01/08/19 20:01 01/08/19 21:10 01/09/19 08:24 Bedside Glucose 91 92 88 74 Test 01/09/19 12:07 Bedside Glucose 94 Subjective 24 Hr Interval Summary Constitutional: no complaints Exam/Review of Systems Exam Vitals Vital Signs Date Temp Pulse Resp B/P (MAP) Pulse Ox O2 O2 Flow FiO2 Time Delivery Rate 01/09/19 97.9 89 16 113/87 96 Room Air 14:07 (96) Intake and Output 01/08/19 01/08/19 01/09/19 1515:00 23:00 07:00 IntakeIntake Total 1200 ml 800 ml OutputOutput Total 420 ml BalanceBalance 780 ml 800 ml Constitutional: alert, oriented Respiratory: clear to auscultation Cardiovascular: regular rate and rhythm Gastrointestinal: soft; No distended Musculoskeletal: No nl extremities to inspection Results Results 24hrs Laboratory Tests Test 01/08/19 17:07 01/08/19 20:01 01/08/19 21:10 01/09/19 08:24 Bedside Glucose 91 92 88 74 Test 01/09/19 12:07 Bedside Glucose 94 Medications Medication Current Medications Insulin Aspart (Novolog Insulin Pen) 5 unit WITH MEALS SC Last administered on 01/09/19at 12:08; Admin Dose 5 UNIT; Start 01/07/19 at 18:00 Insulin Aspart (Novolog Insulin Pen) NOVOLOG *MODERATE* ALGORITHM WITH MEALS BEDTIME SC Last administered on 01/08/19 08:16; Admin Dose 6 UNIT; Start 01/07/19 at 18:00 Miscellaneous Information 1 ea NOTE XX ; Start 01/07/19 at 16:30 Glucose (Glutose) 15 gm Q15M PRN PO DECREASED GLUCOSE; Start 01/07/19 at 16:30 Glucose (Glutose) 22.5 gm Q15M PRN PO DECREASED GLUCOSE; Start 01/07/19 at 16:30 Dextrose (D50w Syringe) 25 ml Q15M PRN IV DECREASED GLUCOSE; Start 01/07/19 at 16:30 Dextrose (D50w Syringe) 50 ml Q15M PRN IV DECREASED GLUCOSE Last administered on 01/08/19at 07:05; Admin Dose 50 ML; Start 01/07/19 at 16:30 Glucagon (Glucagen) 1 mg Q15M PRN IM DECREASED GLUCOSE; Start 01/07/19 at 16:30 Glucose (Glutose) 15 gm Q15M PRN BUCCAL DECREASED GLUCOSE; Start 01/07/19 at 16:30 IV Flush (NS 3 ml) 3 ml PER PROTOCOL IV ; Start 01/07/19 at 17:00 Acetaminophen/ Hydrocodone Bitart ([place] (5/325)) 2 tab Q6H PRN PO .SEVERE PAIN 7-10 Last administered on 01/09/19at 13:59; Admin Dose 2 TAB; Start 01/07/19 at 17:00 Hydromorphone HCl (Dilaudid) 0.5 mg Q4H PRN IV .SEVERE PAIN 7-10 Last administered on 01/08/19at 20:06; Admin Dose 0.5 MG; Start 01/07/19 at 17:00 Heparin Sodium (Porcine) (Heparin (5000 Units/1ml)) 5,000 unit Q12 SC Last administered on 01/09/19 08:26; Admin Dose 5,000 UNIT; Start 01/07/19 at 21:00 Aspirin (Aspirin) 81 mg DAILY PO Last administered on 01/09/19 08:24; Admin Dose 81 MG; Start 01/08/19 at 09:00 Insulin Glargine (Lantus) 5 units DAILY@2000 SC Last administered on 01/08/19at 20:08; Admin Dose 5 UNITS; Start 01/08/19 at 20:00 Sodium Hypochlorite (Dakin'S (Dilute 40)) 1 applic DAILY IRR Last administered on 01/09/19at 08:26; Admin Dose 1 APPLIC; Start 01/09/19 at 09:00 IND[place] REYNOLDS Jan 09, 2019 16:35
[2019-01-09] MEDS ORDERED: LOPERAMIDE 2 MG CAP PO PRN (17:00)
[2019-01-09] MEDS ORDERED: ZOLPIDEM 5 MG TAB PO PRN (17:00)
--- NOTE | 2019-01-09 19:09 | PN ---
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 Recommend daily dakins irrigation with betadine 4x4 gauze and kerlix wrap. Recommend offload heels with pillows. Non-invasive arterial studies showed calcified DP and post tib vessels. Reviewed X-rays and MRI which showed predominantly diffuse edema and degenerative changes. It's possible that there is early stage of acute charcot neuroarthropathy and recommend non weight bearing to the left lower extremity. Recommend vascular evaluation, there is significant calcified vessels and pain could possibly be related to ischemic causes. Result Diagram: 01/08/19 0546 01/08/1946 Results 24hrs Laboratory Tests Test 01/08/19 20:01 01/08/19 21:10 01/09/19 08:24 01/09/19 12:07 Bedside Glucose 92 88 74 94 Test 01/09/19 17:09 Bedside Glucose 107 Subjective 24 Hr Interval Summary Free Text/Dictation No acute events overnight. Exam/Review of Systems Exam Vitals Vital Signs Date Temp Pulse Resp B/P (MAP) Pulse Ox O2 O2 Flow FiO2 Time Delivery Rate 01/09/19 97.9 89 16 113/87 96 Room Air 14:07 (96) Intake and Output 01/08/19 01/08/19 01/09/19 1515:00 23:00 07:00 IntakeIntake Total 1200 ml 800 ml OutputOutput Total 420 ml BalanceBalance 780 ml 800 ml Exam Weakly palpable DP/PT pulses Weakly palpable popliteal pulse Left medial foot ulceration site with scant purulence appreciated measuring 0.5 x 0.5 x 0.3cm. No tunneling or undermining appreciated. Unable to probe to bone. No proximal streaking Absent protective sensations R above knee amputation site appreciated. Diffuse pain noted to the left foot and ankle region. Left foot X-ray IMPRESSION: No fracture or acute osseous abnormality demonstrated. Left ankle MRI IMPRESSION: 1. Diffuse subcutaneous edema most prominent in the dorsum of the hind foot and midfoot. 2. Diffuse edema of the visualized musculature of the foot may be neuropathic. 3. No acute fracture. Hypertrophic change in the medial malleolus with focal edema likely reactive. 4. Prominent Stieda process/os trigonum with edema / cystic change and degenerative change in the posterior tibiotalar joint may be related to posterior impingement. 5. Small to moderate tibiotalar and subtalar joint effusion. 6. Tenosynovitis of the peroneal and posterior flexor tendons as above. 7. Additional degenerative changes as above. Non invasive arterial studies IMPRESSION: 1. No significant aortoiliac disease. 2. No significant left femoral popliteal disease. 3. Diffuse calcific disease of left posterior tibial and dorsalis pedis artery with abnormal monophasic wave forms. No focal elevated velocities to suggest high-grade stenosis. Results Results 24hrs Laboratory Tests Test 01/08/19 20:01 01/08/19 21:10 01/09/19 08:24 01/09/19 12:07 Bedside Glucose 92 88 74 94 Test 01/09/19 17:09 Bedside Glucose 107 Medications Medication Current Medications Insulin Aspart (Novolog Insulin Pen) 5 unit WITH MEALS SC Last administered on 01/09/19at 17:11; Admin Dose 5 UNIT; Start 01/07/19 at 18:00 Insulin Aspart (Novolog Insulin Pen) NOVOLOG *MODERATE* ALGORITHM WITH MEALS BEDTIME SC Last administered on 01/08/19at 08:16; Admin Dose 6 UNIT; Start 01/07/19 at 18:00 Miscellaneous Information 1 ea NOTE XX ; Start 01/07/19 at 16:30 Glucose (Glutose) 15 gm Q15M PRN PO DECREASED GLUCOSE; Start 01/07/19 at 16:30 Glucose (Glutose) 22.5 gm Q15M PRN PO DECREASED GLUCOSE; Start 01/07/19 at 16:30 Dextrose (D50w Syringe) 25 ml Q15M PRN IV DECREASED GLUCOSE; Start 01/07/19 at 16:30 Dextrose (D50w Syringe) 50 ml Q15M PRN IV DECREASED GLUCOSE Last administered on 01/08/19at 07:05; Admin Dose 50 ML; Start 01/07/19 at 16:30 Glucagon (Glucagen) 1 mg Q15M PRN IM DECREASED GLUCOSE; Start 01/07/19 at 16:30 Glucose (Glutose) 15 gm Q15M PRN BUCCAL DECREASED GLUCOSE; Start 01/07/19 at 16:30 IV Flush (NS 3 ml) 3 ml PER PROTOCOL IV ; Start 01/07/19 at 17:00 Acetaminophen/ Hydrocodone Bitart ([place] (5/325)) 2 tab Q6H PRN PO .SEVERE PAIN 7-10 Last administered on 01/09/19 18:44; Admin Dose 2 TAB; Start 01/07/19 at 17:00 Hydromorphone HCl (Dilaudid) 0.5 mg Q4H PRN IV .SEVERE PAIN 7-10 Last administered on 01/08/19 20:06; Admin Dose 0.5 MG; Start 01/07/19 at 17:00 Heparin Sodium (Porcine) (Heparin (5000 Units/1ml)) 5,000 unit Q12 SC Last administered on 01/09/19 08:26; Admin Dose 5,000 UNIT; Start 01/07/19 at 21:00 Aspirin (Aspirin) 81 mg DAILY PO Last administered on 01/09/19 08:24; Admin Dose 81 MG; Start 01/08/19 at 09:00 Insulin Glargine (Lantus) 5 units DAILY@2000 SC Last administered on 01/08/19 20:08; Admin Dose 5 UNITS; Start 01/08/19 at 20:00 Sodium Hypochlorite (Dakin'S (Dilute 1/40)) 1 applic DAILY IRR Last administered on 01/09/19 08:26; Admin Dose 1 APPLIC; Start 01/09/19 at 09:00 Loperamide HCl (Imodium Cap) 2 mg QID PRN PO DIARRHEA; Start 01/09/19 at 17:00 Zolpidem Tartrate (Ambien) 5 mg HS MAY REPEAT X 1 PRN PO INSOMNIA; Start 01/09/19 at 17:00 MANISHA STOCKTON DPM Jan 09, 2019 19:09
[2019-01-09 20:16] VITALS: BP 100/69; PULSE 80; RESP 16
[2019-01-09] MEDS: HYDROmorphONE 0.5 MG/0.5 ML SYG IV PRN (20:59)
[2019-01-10] MEDS: HYDROCODONE/APAP (5/325) TAB PO PRN ×2 (00:55→08:51)
[2019-01-10 02:35] VITALS: BP 129/78; PULSE 87; RESP 18
[2019-01-10] MEDS: INSULIN ASPART [NOVOLOG] 3 ML PEN SC SCH ×4 (08:12→13:05)
[2019-01-10] MEDS: HEPARIN 5,000 UNIT/1 ML VIAL SC SCH (08:13)
[2019-01-10] MEDS: SODIUM HYPOCHLORITE (1/40) 1 APPLIC BTL IRR SCH (08:15)
[2019-01-10] MEDS: ASPIRIN 81 MG TAB PO SCH (08:15)
[2019-01-10] MEDS: HYDROmorphONE 0.5 MG/0.5 ML SYG IV PRN (08:25)
[2019-01-10 08:38] VITALS: BP 147/75; PULSE 75; RESP 19
--- NOTE | 2019-01-10 10:52 | PDOCDIS ---
Discharge Instructions CONDITION [id number] Patient Condition: [id number] Good HOME CARE INSTRUCTIONS: [id number] Special Diet: [id number] DIABETIC ACTIVITY: [id number] Activity Restrictions: [id number] No Restrictions FOLLOW UP/APPOINTMENTS Follow-up Plan FOLLOW UP WITH YOUR PCP IN 1-2 WEEKS [place] REYNOLDS Jan 10, 2019 10:52
[2019-01-10] MEDS ORDERED: GABA300C16 PO (11:34)
[2019-01-10 14:20] VITALS: BP 124/73; PULSE 84; RESP 18
[2019-01-10] MEDS ORDERED: ESCITALOPRAM 10 MG TAB PO SCH (15:30)
[2019-01-10] MEDS ORDERED: ESCI5TAB PO (15:38)
[2019-01-10] MEDS ORDERED: TRAZ-111 PO (15:38)
--- NOTE | 2019-01-10 15:42 | DS ---
Date/Time of Note Date/Time of Note DATE: 01/10/19 TIME: 15:39 Discharge Summary Admission/Discharge Info Admit Date/Time Jan 07, 2019 at 15:59 Discharge Date/Time January 10, 2019 Discharge Diagnosis 63 yo male with h/o DMII and PAD s/p R BKA who presents with severe pain in L ankle L ankle pain: - MRI shows neuropathic changes of ankle. Dr Trinidad from podiatry consultation appreciated, patient is status post debridement DMII with hyperglycemia: -Continue home regimen PAD: - Aspirin and statin Diabetic neuropathy -DC with gabapentin Depression -Psychiatry consultation appreciated, DC with Lexapro and trazodone Homelessness -Patient refusing placement in [facility], social insurance specialist consultation appreciated Patient Condition: Good Hospital Course Patient is a 63 yo male with h/o DMII and PAD s/p R BKA who presents with severe pain in L ankle, patient had MRI that showed neuropathic change of ankle and patient was seen by podiatry and status post debridement. Patient is homeless and was seen by social insurance specialist but refused to go to a [facility], patient was seen by psychiatry for his depression and was to be started on Lexapro and trazodone. Patient was stable for DC, on day of discharge patient's vitals, labs and physical exam are stable. Home Meds Active Scripts Trazodone Hcl* (Trazodone Hcl*) 50 Mg Tablet, 25 MG PO QHS, #60 TAB Prov:GAILINDIANA GUZMAN 01/10/19 Escitalopram Oxalate* (Lexapro*) 5 Mg Tablet, 5 MG PO DAILY, #60 TAB Prov:[place] REYNOLDS 01/10/19 Gabapentin* (Gabapentin*) 300 Mg Capsule, 300 MG PO TID, #90 CAP Prov:GAILINDIANA GUZMAN 01/10/19 Cephalexin* (Keflex*) 500 Mg Capsule, 500 MG PO QID for 7 Days, CAP Prov:DENNIS DIAZ MD 01/06/19 Reported Medications Gabapentin* (Gabapentin*) 800 Mg Tablet, 800 MG PO TID, #90 TAB 01/06/19 Insulin Glargine* (Lantus*) 100 Unit/Ml Soln, 5 UNIT SC QHS, #1 VIAL 01/06/19 Insulin Aspart* (Novolog Insulin Pen*) 100 Unit/Ml Soln, 5 UNIT SC WITH MEALS, EA 01/06/19 Follow-up Plan FOLLOW UP WITH YOUR PCP IN 1-2 WEEKS Primary Care Provider Not On Staff Doctor Time spent on discharge: > 30 minutes IND[place] REYNOLDS Jan 10, 2019 15:42
--- NOTE | 2019-01-10 16:06 | PSY ---
Date/Time of Note Date/Time of Note DATE: 01/10/19 TIME: 15:41 Psychiatric Subjective Eval Consent Pt consented to telemedicine: No Subjective Evaluation Patient location: inpatient Chief Complaint: suicidal ideation s/p not being seen @ wound clinic and "in pain" History of present illness Patient is a 63 year old male with history Diabetes, PAD s/p BKA who presents with severe pain. On a face to face evaluation, patient reports feeling hopeless because of severe pain and but denies suicidal ideation and contracted for safety. Patient is [place] speaking only, and social service assistant in the room and translated. and also helped patient with resources. . Past psychiatric history Denies Hospitalization: other Medical history Problems Medical Problems: (1) Foot pain Status: Acute (2) Pyelonephritis Status: Acute Allergies: Coded Allergies: No Known Allergies (Verified Allergy, Unknown, 01/06/19) Substance Abuse Substance abuse history: No Prior substance abuse treatmen: No Social History Marital status: other DPA/Conservatorship: No Psychiatric Objective Eval Review of Systems: Review of Systems: Not Applicable Physical Examination: Physical Examination: Not Applicable Mental Status Examination: Eye Contact: Good Psychomotor Activity: Slow Behavior: Cooperative Speech: Clear AFFECT: Flat Mood: Depressed Though Process: Linear Thought Content: Normal Orientation: x4 Cognition: Alert Insight: Intact Judgement: Intact Attention Span: Intact Laboratory Results Laboratory Tests Test 01/08/19 17:07 01/08/19 20:01 01/08/19 21:10 01/09/19 08:24 Bedside Glucose 91 mg/dL 92 mg/dL 88 mg/dL 74 mg/dL Test 01/09/19 12:07 01/09/19 17:09 01/09/19 20:18 01/09/19 20:36 Bedside Glucose 94 mg/dL 107 mg/dL 57 mg/dL Glucose Level 58 mg/dl Test 01/09/19 20:38 01/09/19 20:54 01/09/19 21:23 01/10/19 08:08 Bedside Glucose 79 mg/dL 173 mg/dL 181 mg/dL 273 mg/dL Test 01/10/19 11:27 01/10/19 13:02 Lab Scanned REFERENCE Report LAB [id number] Bedside Glucose 117 mg/dL Assessment and Plan Assessment/Diagnosis Diagnosis Major Depression, Single Episode Recommendation/Plan Medication Management Lexapro 5mg daily, Trazadone 25mg QHS Discharge Disposition: Other Legal Status: Voluntary (DOES NOT MEET CRITERIA FOR 5150 HOLD) RAYMUNDO ZAMBRANO NP Jan 10, 2019 16:03
[2019-01-10] MEDS ORDERED: traZODone 50 MG TAB PO SCH (21:00)
== END 2019-01-10 16:35 | disposition home or self-care (01) | DRG 41 ==
LOC: E/R 17:51 → 5EC 20:30 → OBSVTOIN 01-07 15:59
PROVIDERS: ADMIT Internal Medicine; ATTEND Internal Medicine
PROC: 0JBR0ZZ Excision of Left Foot Subcutaneous Tissue and Fascia, Open Approach (ICD-10-PCS; principal; 2019-01-08)
DX: E11.610 Type 2 diabetes mellitus with diabetic neuropathic arthropathy (principal); N10 Acute pyelonephritis; E11.51 Type 2 diabetes mellitus with diabetic peripheral angiopathy without gangrene; E11.621 Type 2 diabetes mellitus with foot ulcer; E11.65 Type 2 diabetes mellitus with hyperglycemia; Z89.611 Acquired absence of right leg above knee; E11.42 Type 2 diabetes mellitus with diabetic polyneuropathy; M19.072 Primary osteoarthritis, left ankle and foot; F32.9 Major depressive disorder, single episode, unspecified; B95.1 Streptococcus, group B, as the cause of diseases classified elsewhere; Z79.4 Long term (current) use of insulin; Z79.82 Long term (current) use of aspirin; Z59.0 Homelessness
CPT/HCPCS: 36415; 73610; 73721; 80053; 81001; 82803; 82947; 82962; 83036; 83605; 83735; 84100; 84484; 85025; 85651; 86140; 87070; 87086; 90686; 93005; 93922; 96374; 97161; 99217; G0378; J0696; J1170; J1644; J1815; J1885; J2270; J7030